=== PATIENT | female | born 1950 | race Caucasian/White ===

== ENCOUNTER 2020-06-25 16:41 | Emergency (ER) | payer MEDICARE, BC, SELFPAY ==
[2020-06-25 16:50] VITALS: BP 129/52; PULSE 68; RESP 16; TEMP 36.5; O2SAT 100
--- NOTE | 2020-06-25 17:00 | DI.RAD_ITS ---
EXAM: XR KNEE LT 3V AP,LAT,MARSHA CLINICAL HISTORY: fall onto knee, ecchymosis, swelling, pain. TECHNIQUE: 2D digital imaging was performed. COMPARISON: No exams were available for comparison FINDINGS: BONES: No acute fracture is present. No bony destructive lesion is seen. JOINTS: The knee is normally aligned. No joint effusion is seen. Degenerative changes are seen in the knee characterized by joint space narrowing and periarticular spurring. Findings are most marked in the medial femoral tibial joint space. SOFT TISSUE: Normal. IMPRESSION: No acute fracture or dislocation. DATA REPOSITORY: RADIATION DOSE DELIVERED:
--- NOTE | 2020-06-25 17:02 | W.ED.GENAD ---
Discharge Plan Disposition Patient Disposition: HOME Condition: Good Discharge Details Clinical Impression: Contusion of knee Primary Care Provider: Enma Bentley ED Provider: Paulina Diallo Home Meds and New Rx's Prescriptions: Continued Premarin 0.625 mg/gram cream 0.3125 mg VG .once weekly RF: 0 omega-3 fatty acids [Fish Oil Concentrate] 1,000 mg capsule 1,000 mg PO DAILY RF: 0 multivitamin [Daily Multi-Vitamin] 1 EACH tablet 1 ea PO DAILY RF: 0 cholecalciferol (vitamin D3) 50,000 UNIT capsule 50,000 unit PO weekly RF: 0 metoprolol succinate 25 mg tablet extended release 24 hr 12.5 mg PO DAILY RF: 0 fluticasone propionate 50 mcg/actuation spray,suspension 50 mcg NS PRN RF: 0 acetaminophen [Acetaminophen Extra Strength] 500 mg Tablet 1,000 mg PO PRN PRNRF: 0 Discharge Instructions Instructions: Contusion in Adults (ED) Additional Instructions: Take follow-up with orthopedic in the next week for reevaluation with pain Wear your knee brace Use crutches to limit your weightbearing Ibuprofen 400 mg every 8 as needed for pain Return with worsening pain, strength or sensation changes, or with any new worsening complaints with food Tylenol 650 mg 1 g every 6 hours HPI 69-year-old female presents with injury to right knee. She is walking her dog and her dog started pulling, causing her to slip and landing on her left knee. She denies any additional injuries. She is able to ambulate with significant discomfort. She describes the pain as cramping. She states the pain is worse with flexion. She took 2 Tylenol prior to arrival and denies any additional injuries. She denies any strength or sensation changes distally. General Date/Time Provider Initiated Documentation: 06/25/20 16:45. Related Data Home Medications Medication Instructions Recorded Confirmed multivitamin [Daily Multi-Vitamin] 1 ea PO DAILY 01/19/13 06/25/20 cholecalciferol (vitamin D3) 50,000 unit PO weekly 03/07/17 06/25/20 conjugated estrogens 0.625 mg/gram 0.3125 mg VG .once weekly tube 03/12/19 06/25/20 vaginal cream fluticasone propionate 50 50 mcg NS PRN spray 03/12/19 06/25/20 mcg/actuation nasal spray,suspension metoprolol succinate 25 mg 12.5 mg PO DAILY tab 03/12/19 06/25/20 tablet,extended release 24 hr omega-3 fatty acids 1,000 mg 1,000 mg PO DAILY 03/12/19 06/25/20 capsule acetaminophen [Acetaminophen Extra 1,000 mg PO PRN PRN 06/25/20 06/25/20 Strength] Allergies Allergy/AdvReac Type Severity Reaction Status Date / Time ethinyl estradiol Allergy Verified 06/25/20 16:54 [From Seasonale ()] levonorgestrel Allergy Verified 06/25/20 16:54 [From Seasonale ()] No Known Drug Allergies Allergy Verified 06/25/20 16:54 General Stated Complaint: Orthopedic LANE: 3 Review of Systems Narrative: Review of present negative x7 aside from where indicated in HPI [facility] Medical History (Updated 06/25/20 @ 17:56 by GAYLE Artis) Arrythmia Endometriosis Gallbladder calculus Surgical History (Updated 03/10/18 @ 10:59 by Jessica Pham NP) Abdominal hysterectomy 2007 secondary to endometriosis Cholecystectomy 1978 Diagnostic Laproscopy 1978 for Dx endometriiosis Oophrectomy, Left 2008 Family History Other Heart disease Osteoporosis Social History (Updated 03/12/19 @ 10:13 by Alejandra Geronimo RN) Smoking/Tobacco Use Status: Never Smoking risk assessment performed?: Yes Alcohol Intake: current Drug use: Never 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 Do you feel safe at home: Yes Do you feel safe in your relationship?: Yes Female Reproductive History Menstrual Menopause type: surgical History History 0 Para Hx # Term Pregnancies Multiple births Hx # Pregnancies Ectopic pregnancies AB induced Hx Number of Living Children AB spontaneous Exam Const General: cooperative Eyes Pupils: PERRL Neck Other: No midline tenderness Resp Effort & Inspection: normal respiratory effort Cardio Rate: regular rate Back/Spine/Pelvis Other: No tenderness to lumbar spine or hips bilaterally Neuro General: patient alert and patient oriented x3 Extrem Other: Left knee with tenderness and ecchymosis No tenderness to left hip or ankle Course Vital Signs Vital signs: Vital Signs Temperature 36.5 C 06/25/20 16:50 Pulse 68 06/25/20 16:50 Respiratory Rate 16 06/25/20 16:50 Blood Pressure 129/52 L 06/25/20 16:50 Pulse Oximetry 100 06/25/20 16:50 Temperature 36.5 C 06/25/20 16:50 Temperature Source Temporal Artery Scan 06/25/20 16:50 Pulse 68 06/25/20 16:50 Respiratory Rate 16 06/25/20 16:50 Respiratory Effort 06/25/20 16:55 Blood Pressure 129/52 L 06/25/20 16:50 Blood Pressure Position Sitting 06/25/20 16:50 Pulse Oximetry 100 06/25/20 16:50 Oxygen Delivery Method Room Air 06/25/20 16:50 Oxygen Flow Rate 0 06/25/20 16:50 Pain Level 7 06/25/20 16:58
--- NOTE | 2020-06-25 17:23 | DI.VRAD_ITS ---
PROCEDURE INFORMATION: Exam: XR Left Knee Exam date and time: 06/25/2020 5:17 PM Age: 69 years old Clinical indication: Injury or trauma; Swelling (edema); Left; Patient HX: Fall onto knee, swelling, pain TECHNIQUE: Imaging protocol: XR Left knee. Views: 3 views. COMPARISON: No relevant prior studies available. FINDINGS: Bones/joints: Medial compartment narrowing and small tricompartment marginal osteophytes of the left knee Soft tissues: Normal. IMPRESSION: No acute findings. Degenerative arthritis in the left knee. Dictated and Authenticated by: Debbie Arteaga MD. Ordering:ALEKSANDAR Gallardo MD
== END 2020-06-25 18:35 | disposition home or self-care (01) ==
PROVIDERS: Emergency Provider Physician Assistant; PCP Family Medicine
DX: S80.01XA Contusion of right knee, initial encounter (principal); W00.0XXA Fall on same level due to ice and snow, initial encounter; Y93.K1 Activity, walking an animal
CPT/HCPCS: 73562; 99283

== ENCOUNTER → 2022-05-17 08:51 | Outpatient (BNVA) | payer MEDICARE, BC, SELFPAY | PROVIDERS: PCP Family Medicine; Referring Provider Family Medicine; Visit Provider Student in an Organized Health Care Education/Training Program | DX: M65.4 Radial styloid tenosynovitis [de Quervain] (principal) | CPT/HCPCS: 99213 ==

== ENCOUNTER 2022-05-30 06:15 | Day surgery (SDC) | payer MEDICARE, BC, SELFPAY ==
[2022-05-30 06:30] VITALS: BP 100/65; PULSE 62; RESP 16; TEMP 36.5; O2SAT 98
--- NOTE | 2022-05-30 07:02 | W.PREOPHP ---
Assessment and Plan Assessment and plan (1) De Quervain's tenosynovitis: Status: Acute Assessment and plan: Angy is a 71-year-old female who has de Quervain's tenosynovitis of the right wrist. She is here today for a first wrist compartment release. I discussed the procedure with her. I reviewed the risk of the procedure to include bleeding, infection, pain, stiffness, incomplete release, missed compartments, damage nerves and vessels, damage to muscle and tendons, weakness, tendon subluxation. Despite these risk, she elects to proceed. History of Present Illness History of Present Illness Chief Complaint: Right DeQuervain's Tenosynovitis Narrative: Sania is a 71-year-old female with right de Quervain's tenosynovitis. Please see the previous office note for complete detailed history. She is here today for a first extensor compartment release. She has no acute medical concerns. She has had no changes to her health. She denies any sick contacts. Review of Systems All systems reviewed & are unremarkable except as noted in HPI and below PFSH All Active Problems Acquired absence of both cervix and uterus (Acute 03/01/15) Fibrocystic disease of breast (Acute 03/11/13) PAC (premature atrial contraction) (Acute 03/07/17) Sees cardiology yrly Arrhythmia (Acute 01/19/13) Vaginal atrophy (Acute) Contusion of knee (Acute) History of [place] exposure in utero (Acute) De Quervain's tenosynovitis (Acute) Medical History Arrythmia Endometriosis Gallbladder calculus Hiatal hernia Scoliosis Surgical History Abdominal hysterectomy 2007 secondary to endometriosis Cholecystectomy 1978 Diagnostic Laproscopy 1978 for Dx endometriiosis Oophrectomy, Left 2008 S/P TKR (total knee replacement) Family History Other Heart disease Osteoporosis Social History Smoking/Tobacco Use Status: Never Smoking risk assessment performed?: Yes Alcohol Intake: current Alcohol Intake frequency: holidays/special occasions only Drug use: Never Substance use type: does not use current occupation: Retired Special Education Case Manager Do you feel safe at home: Yes Do you feel safe in your relationship?: Yes Female Reproductive History Menstrual Menopause type: surgical History History 0 Para Hx # Term Pregnancies Multiple births Hx # Pregnancies Ectopic pregnancies AB induced Hx Number of Living Children AB spontaneous Meds Allergies and Home Medications Allergies Allergy/AdvReac Type Severity Reaction Status Date / Time No Known Drug Allergies Allergy Verified 05/30/22 06:24 SEASONAL ENVIRONMENTAL Allergy Unknown Uncoded 05/30/22 06:24 ALLERGIES Home Medications Medication Instructions Recorded Confirmed Type multivitamin (Daily Multi-Vitamin 1 ea PO DAILY 01/19/13 05/30/22 History tablet) conjugated estrogens 0.625 mg/gram 0.3125 mg vaginal .once weekly 03/12/19 05/28/22 History vaginal cream (Premarin) fluticasone propionate 50 50 mcg NS PRN 03/12/19 05/28/22 History mcg/actuation nasal spray,suspension metoprolol succinate 25 mg 12.5 mg PO DAILY 03/12/19 05/30/22 History tablet,extended release 24 hr acetaminophen 500 mg tablet 1,000 mg PO PRN PRN 06/25/20 05/28/22 History (Acetaminophen Extra Strength) terbinafine HCl 250 mg tablet 250 mg PO DAILY 03/07/22 05/30/22 History vit D3-folic acid-vit B2-B6-B12 tab PO 05/30/22 History 2,000 unit-800 mcg-0.32 mg tablet Exam Const General: cooperative, healthy appearing, comfortable and no acute distress Resp Auscultation: clear to auscultation bilaterally Cardio Rate: regular rate Rhythm: regular rhythm Results Last Vital Signs Temp 36.5 C 05/30/22 06:30 Pulse 62 05/30/22 06:30 Resp 16 05/30/22 06:30 BP 100/65 05/30/22 06:30 Pulse Ox 98 05/30/22 06:30
--- NOTE | 2022-05-30 07:03 | W.ANESPRE ---
General Info Date of Service Date Performed: 05/30/22 Height: 5 ft 4 in Weight: 70.7 kg Body Mass Index (BMI): 26.7 Surgical Procedure: Operation Date: 05/30/22 07:40 Proposed Procedure Side Surgeon p Wrist Dequervains Release Right Solomon Mas MD Meds Allergies and Home Medications Allergies Allergy/AdvReac Type Severity Reaction Status Date / Time No Known Drug Allergies Allergy Verified 05/30/22 06:24 SEASONAL ENVIRONMENTAL Allergy Unknown Uncoded 05/30/22 06:24 ALLERGIES Home Medication Medication Instructions Recorded multivitamin (Daily Multi-Vitamin 1 ea PO DAILY 01/19/13 tablet) conjugated estrogens 0.625 mg/gram 0.3125 mg vaginal .once weekly 03/12/19 vaginal cream (Premarin) fluticasone propionate 50 50 mcg NS PRN 03/12/19 mcg/actuation nasal spray,suspension metoprolol succinate 25 mg 12.5 mg PO DAILY 03/12/19 tablet,extended release 24 hr terbinafine HCl 250 mg tablet 250 mg PO DAILY 03/07/22 acetaminophen 500 mg tablet 500 mg PO Q6H PRN PRN pain #40 tabs 05/30/22 hydrocodone 5 mg-acetaminophen 325 1 tab PO Q6H PRN pain #2 tabs 05/30/22 mg tablet ibuprofen 600 mg tablet 600 mg PO TID PRN pain #30 tabs 05/30/22 vit D3-folic acid-vit B2-B6-B12 tab PO 05/30/22 2,000 unit-800 mcg-0.32 mg tablet Current Visit Medications: Current Medications Generic Name Dose Route Start Last Admin Trade Name Chaseq PRN Reason Stop Dose Admin Ringer's Solution 1,000 mls @ 80 mls/hr 05/30/22 06:00 IV 06/28/22 23:59 INFUSION LATISHA Cefazolin Sodium/Dextrose 2 gm in 50 mls @ 100 mls/hr 05/30/22 06:00 Ancef Duplex IVPB 05/30/22 16:00 PREOP LATISHA IV Miscellaneous Supplies 1 each 05/30/22 06:00 Iv Access IV 06/28/22 23:59 DIRECTED LATISHA Sodium Chloride 0 ml 05/30/22 06:00 Normal Saline Flush 10 Ml Syr IV 06/28/22 23:59 PRN PRN Sodium Chloride 0 ml 05/30/22 06:00 Normal Saline 10 Ml Vial IJ 06/28/22 23:59 DIRECTED PRN Sterile Water 0 ml 05/30/22 06:00 Water,Injection,Sterile 10 Ml Vial IJ 06/28/22 23:59 DIRECTED PRN PFSH Active Problems Active Problems: Problem Status Onset Code Acquired absence of both cervix and uterus 03/01/15 Z90.710 Fibrocystic disease of breast 03/11/13 N60.19 PAC (premature atrial contraction) 03/07/17 I49.1 Arrhythmia 01/19/13 I49.9 Vaginal atrophy N95.2 Contusion of knee S80.00XA History of [place] exposure in utero Z91.89 De Quervain's tenosynovitis M65.4 Medical History Medical History Arrythmia Endometriosis Gallbladder calculus Hiatal hernia Scoliosis Surgical History Surgical History Abdominal hysterectomy 2007 secondary to endometriosis Cholecystectomy 1978 Diagnostic Laproscopy 1978 for Dx endometriiosis Oophrectomy, Left 2008 S/P TKR (total knee replacement) Tobacco Smoking/Tobacco Use Status: Never Alcohol Alcohol Intake: current Alcohol intake frequency: holidays/special occasions only Substance Use Substance use: Never Substance use type: does not use Prental History History 0 Para Hx # Term Pregnancies Multiple births Hx # Pregnancies Ectopic pregnancies AB induced Hx Number of Living Children AB spontaneous Vital Signs and Lab Results Vital Signs Most Recent Vital Signs in EMR: Most Recent Vital Signs Temp Pulse Resp BP Pulse Ox 36.5 C 62 16 100/65 98 05/30/22 06:30 05/30/22 06:30 05/30/22 06:30 05/30/22 06:30 05/30/22 06:30 Lab Results Blood Type / Crossmatch: No Data to Display Complete Blood Count: No Data to Display Complete Metabolic Panel: No Data to Display Liver Function Panel: No Data to Display Coagulation Panel: No Data to Display Cardiac Panel: No Data to Display Arterial Blood Gas: No Data to Display Venous Blood Gas: No Data to Display Pancreas Panel: No Data to Display Thyroid Panel: No Data to Display Infectious Disease: No Data to Display Blood Cultures: No Data to Display Toxicology Panel: No Data to Display Anesthesia Assessment and Plan Anesthesia History Personal History: No History of Anesthesia Complications Family History: No Family History of Anesthesia Complications Exercise Tolerance Exercise Tolerance: Metabolic Equivalents>4 Pertinent Negatives Pertinent Negatives: No Symptoms of GERD, No Major Cardiovascular Symptoms or Complaints and No Major Pulmonary Symptoms or Complaints Cardiac & Pulmonary Exam Cardiac Exam: Normal S1/S2 Heart Sounds Pulmonary Exam: Clear Bilateral Breath Sounds Implantable Cardiac Device Does patient have a Pacemaker or an ICD?: No Airway Exam Known Difficult Airway: No Mallampati Class: 2 Mouth Opening: Normal (> 3cm) Thyromental Distance: Greater than 3 cm Neck Range of Motion: Full ROM Neck Circumference: Normal Teeth Condition: Normal Dentition ASA Classification ASA Score: ASA 2 Emergency Case?: No NPO Status NPO Status: NPO Clears >2 hours, Solids >8 hours Anesthesia Plan Resuscitation Status: Full Code Anesthesia Technique: General Anesthesia Airway Planned: Natural Airway Monitors Used: Standard Monitors
[2022-05-30] MEDS: Lactated Ringers 1,000 ML 80 ML IV (07:05)
--- NOTE | 2022-05-30 07:11 | W.PM.DSUDISC ---
Date of service: 05/30/22 Time of Service: 07:11 Discharge Plan Disposition Patient Disposition: Home Discharge Details Attending Provider: Solomon Mas Primary Care Provider: Ericka Sánchez Home Meds and New Rx's Prescriptions: New acetaminophen 500 mg tablet 500 mg PO Q6H PRN PRN (Reason: pain) Qty: 40 3RF hydrocodone-acetaminophen 5-325 mg tablet 1 tab PO Q6H PRN (Reason: pain) Qty: 2 0RF ibuprofen 600 mg tablet 600 mg PO TID PRN (Reason: pain) Qty: 30 3RF Continued Premarin 0.625 mg/gram cream 0.3125 mg VG .once weekly Rx Instructions: Use 0.5mg in vagina twice weekly multivitamin [Daily Multi-Vitamin] 1 EACH tablet 1 ea PO DAILY metoprolol succinate 25 mg tablet extended release 24 hr 12.5 mg PO DAILY Label Comments: TAKES 12.5 MG/1/2 TAB DAILY fluticasone propionate 50 mcg/actuation spray,suspension 50 mcg NS PRN terbinafine HCl 250 mg tablet 250 mg PO DAILY vit D3-folic blyx-N3-H2-B12 2,000-800-0.32 unit-mcg-mg Tablet PO Rx Instructions: 5000 mg every day. Discontinued acetaminophen [Acetaminophen Extra Strength] 500 mg Tablet 1,000 mg PO PRN PRN Discharge Instructions Additional Instructions: Dagmar's Discharge Instructions Activity: You should keep the hand elevated as much as possible for the first few days. You may use the other fingers as tolerated but avoid trying to do too much too soon. You may perform light activities with the splint in place. Dressing/Cast: Your splint should stay in place at all times. Do NOT get it wet. You may loosen the ARABELLA wrap if you feel it is too tight and then rewrap more loosely. Medications: - You should take Tylenol and Ibuprofen for baseline pain control. - You have Hydrocodone for breakthrough pain. - You may apply ice over the thumb. Follow-up: 7-10 days Referrals: Solomon Mas MD [ [facility] STAFF PHYSICIAN] - Activity:: Elevate Remove Dressings/Wound Care:: Do Not Remove Shower/Bathe:: Cover Diet:: As Tolerated Discharge Orders Discharge Orders: Discharge Order (Routine); Ordered 05/30/22 Ordered By: Solomon Mas DS: Diagnosis Discharge Diagnosis (1) De Quervain's tenosynovitis: Status: Acute
[2022-05-30 07:20] VITALS: BMI 26.7
[2022-05-30] MEDS: ceFAZolin 2 GM/50 ML BAG IVPB (07:28)
[2022-05-30] MEDS: Bupivacaine 0.5% Pres-Free W/EPI 10 ML VIAL (07:51)
[2022-05-30 08:04] VITALS: BP 103/55; PULSE 51; RESP 16; TEMP 36.4; O2SAT 99
--- NOTE | 2022-05-30 08:17 | W.ANESPOSTOP ---
Postoperative Evaluation Date, Time and Location Date Performed: 05/30/22 Time Performed: 08:18 Patient Location: Day Surgery Unit Vital Signs Most Recent Imported Vital Signs: Most Recent Vital Signs Temp Pulse Resp BP Pulse Ox 36.4 C L 51 L 16 103/55 L 99 05/30/22 08:04 05/30/22 08:04 05/30/22 08:04 05/30/22 08:04 05/30/22 08:04 Pain Score Most Recent Pain Score: Most Recent Pain Score Pain Level 0 05/30/22 08:04 Assessment Mental Status: Awake (Alert & Oriented to Patient Baseline) Airway and Respiratory Function: Patent airway with normal (patient baseline) respiratory exam Cardiovascular Function: Hemodynamically Stable Hydration Status: Adequately Hydrated Nausea & Vomiting: No Nausea or Vomiting Pain: Pt. Denies Any Pain Peripheral Nerve Block: Patient did not receive a nerve block
[2022-05-30 08:38] VITALS: BP 122/55; PULSE 57; RESP 18; TEMP 36.4; O2SAT 100
--- NOTE | 2022-05-30 09:42 | ROE_ITS ---
Date of service: 05/30/22 Time of Service: 07:50 Operative Note Operative Note DATE OF PROCEDURE: 05/30/22 PRE-OP DIAGNOSIS: Right Dequervain's Tenosynovitis POST-OP DIAGNOSIS: same PROCEDURE: Right First Extensor Compartment Release SURGEON: Solomon Mas ANESTHESIA TYPE: General:No Airway Refer to Anesthesia Record ESTIMATED BLOOD LOSS: 5 PATHOLOGY: none sent TOURNIQUET TIME: 0 COMPLICATIONS: None Patient was transported to: same day Patient's condition: stable Indications: Angy is a 71 year old female who has had symptoms of Dequervain's tenosynovitis. Nonoperative treatment options had been trialed. Given their failure, I offered operative intervention. I reviewed the technical details of a first extensor compartment release. I reviewed the risk of the procedure to include bleeding, infection, pain, stiffness, tendon instability, damage to the superficial radial nerve, and complete release. Despite these risks, the patient elected to proceed. Findings: There was a tightened first excessive compartment. There was a particular tight Sub compartment encasing the EPB tendon. There is notable tenosynovitis. Procedure Description: Angy was greeted in the preoperative holding area. Name and surgical site were confirmed. The history and physical was completed. The consent was reviewed the patient and signed. Angy was taken back to the operating room. The patient was placed in the s upine position and monitored anesthesia care was initiated. The right was then prepped with ChloraPrep and draped in a standard fashion after a nonsterile tourniquet was placed high up onto the arm. Prophylactic antibiotics in the form of cefazolin were administered. A timeout was performed for safe surgery. The surgical site was drawn on the skin. The planned surgical field was anesthetized with 0.5% bupivacaine. A 2 cm incision was made longitudinally over the radial styloid. The skin was incised only. The deep tissue and subcutaneous fat was dissected with a tenotomy scissors trying to protect bridge of the superficial radial nerve. Any branches that were identified were retracted out of the way. The first compartment extensor tendons were then identified. The distal aspect of the first compartment was noted and were released. This release was performed more on the dorsal side to prevent tendon subluxation. The entirety of the first extensor compartment was then released. The slips of the abductor pollicis longus tendon were inspected. They removed to confirm the appropriate motion of the thumb. There was notable tenosynovitis in this region. This was excised sharply. Initially, it was difficult to identify the extensor pollicis brevis. However, the extensor pollicis brevis tendon was then identified in a more dorsal and well concealed subcompartment. It was fully released. Traction on the tendon was also used to confirm appropriate extension of the thumb confirming the release of the appropriate tendon. The dorsal radial surface of the radius was once again inspected to make sure there is no other sub-compartments or other restrictions to tendon motion. The wound was then thoroughly irrigated. The deep tissue was closed with a 3-0 Vicryl. The skin was closed with a running subjective 4-0 Monocryl. Skin glue was applied. The hand was dressed with 4 x 4's, Kerlex and ARABELLA wrap into a soft thumb spica splint. All counts were correct. Patient was transferred back to same day surgery area in stable condition.
== END 2022-05-30 09:00 | disposition home or self-care (01) ==
PROVIDERS: PCP Family Medicine; Visit Provider Student in an Organized Health Care Education/Training Program
PROC: (CPT 25000; principal; 2022-05-30 07:30)
DX: M65.4 Radial styloid tenosynovitis [de Quervain] (principal)
CPT/HCPCS: 25000; J0690; J1885; J2405; J2704

== ENCOUNTER → 2022-06-07 11:30 | Outpatient (BNVA) | payer MEDICARE, BC, SELFPAY | PROVIDERS: PCP Family Medicine; Referring Provider Family Medicine; Visit Provider Student in an Organized Health Care Education/Training Program | DX: M65.4 Radial styloid tenosynovitis [de Quervain] (principal); Z47.89 Encounter for other orthopedic aftercare ==